=== PATIENT | male | born 2000 | race Caucasian/White ===

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

== ENCOUNTER → 2018-08-02 | Outpatient (CLI) | payer MEDICAID, OTHER | LOC: FIMAGING 08:10 | PROVIDERS: ATTEND Family Medicine | DX: R10.31 Right lower quadrant pain (principal) ==